=== PATIENT | male | born 1945 | race Caucasian/White ===

== ENCOUNTER 2020-01-24 08:07 | Outpatient (REF) | payer MEDICARE, SELFPAY | END 2020-01-24 08:08 | disposition home or self-care (01) | LOC: HO.BBR 08:07 | PROVIDERS: Visit Provider Internal Medicine Hematology & Oncology | DX: D75.1 Secondary polycythemia (principal) | CPT/HCPCS: 85018; 99195 ==

== ENCOUNTER 2020-01-27 08:51 | Outpatient (REF) | payer MEDICARE, SELFPAY | END 2020-01-27 08:52 | disposition home or self-care (01) | LOC: HO.BBR 08:51 | PROVIDERS: Visit Provider Internal Medicine Hematology & Oncology | DX: D75.1 Secondary polycythemia (principal) | CPT/HCPCS: 85018; 99195 ==

== ENCOUNTER 2020-02-03 08:04 | Outpatient (REF) | payer MEDICARE, SELFPAY | END 2020-02-03 08:05 | disposition home or self-care (01) | LOC: HO.BBR 08:04 | PROVIDERS: Visit Provider Internal Medicine Hematology & Oncology | DX: D75.1 Secondary polycythemia (principal) | CPT/HCPCS: 36415; 85018; 99195 ==

== ENCOUNTER 2020-02-07 08:08 | Outpatient (REF) | payer MEDICARE, SELFPAY | END 2020-02-07 08:09 | disposition home or self-care (01) | LOC: HO.BBR 08:08 | PROVIDERS: Visit Provider Internal Medicine Hematology & Oncology | DX: D75.1 Secondary polycythemia (principal) | CPT/HCPCS: 85018; 99195 ==

== ENCOUNTER 2020-02-10 08:38 | Outpatient (REF) | payer MEDICARE, SELFPAY | END 2020-02-10 08:39 | disposition home or self-care (01) | LOC: HO.BBR 08:38 | PROVIDERS: PCP Internal Medicine; Visit Provider Internal Medicine Hematology & Oncology | DX: D75.1 Secondary polycythemia (principal) | CPT/HCPCS: 85014; 85018; 99195 ==

== ENCOUNTER 2020-02-14 08:31 | Outpatient (REF) | payer MEDICARE, OTHER, SELFPAY | END 2020-02-14 08:32 | disposition home or self-care (01) | LOC: HO.BBR 08:31 | PROVIDERS: PCP Internal Medicine; Visit Provider Internal Medicine Hematology & Oncology | DX: D75.1 Secondary polycythemia (principal) | CPT/HCPCS: 85018; 99195 ==

== ENCOUNTER 2020-02-18 08:07 | Outpatient (REF) | payer MEDICARE, OTHER, SELFPAY | END 2020-02-18 08:08 | disposition home or self-care (01) | LOC: HO.BBR 08:07 | PROVIDERS: Visit Provider Internal Medicine Hematology & Oncology | DX: D75.1 Secondary polycythemia (principal) | CPT/HCPCS: 36415; 85018; 99195 ==

== ENCOUNTER 2020-02-21 08:27 | Outpatient (REF) | payer MEDICARE, OTHER, SELFPAY | END 2020-02-21 08:28 | disposition home or self-care (01) | LOC: HO.BBR 08:27 | PROVIDERS: Visit Provider Internal Medicine Hematology & Oncology | DX: D75.1 Secondary polycythemia (principal) | CPT/HCPCS: 85018; 99195 ==

== ENCOUNTER 2020-02-25 09:56 | Outpatient (REF) | payer MEDICARE, OTHER, SELFPAY | END 2020-02-25 09:57 | disposition home or self-care (01) | LOC: HO.BBR 09:56 | PROVIDERS: Visit Provider Internal Medicine Hematology & Oncology | DX: D75.1 Secondary polycythemia (principal) | CPT/HCPCS: 36415; 85018; 99195 ==

== ENCOUNTER 2020-02-28 08:08 | Outpatient (REF) | payer MEDICARE, OTHER, SELFPAY | END 2020-02-28 08:09 | disposition home or self-care (01) | LOC: HO.BBR 08:08 | PROVIDERS: Visit Provider Internal Medicine Hematology & Oncology | DX: D75.1 Secondary polycythemia (principal) | CPT/HCPCS: 85018 ==

== ENCOUNTER 2020-03-03 07:57 | Outpatient (REF) | payer MEDICARE, OTHER, SELFPAY | END 2020-03-03 07:58 | disposition home or self-care (01) | LOC: HO.BBR 07:57 | PROVIDERS: PCP Internal Medicine; Visit Provider Internal Medicine Hematology & Oncology | DX: D75.1 Secondary polycythemia (principal) | CPT/HCPCS: 36415; 85018; 99195 ==

== ENCOUNTER 2020-03-06 08:01 | Outpatient (REF) | payer MEDICARE, OTHER, SELFPAY | END 2020-03-06 08:02 | disposition home or self-care (01) | LOC: HO.BBR 08:01 | PROVIDERS: PCP Internal Medicine; Visit Provider Internal Medicine Hematology & Oncology | DX: D75.1 Secondary polycythemia (principal) | CPT/HCPCS: 36415; 85018 ==

== ENCOUNTER 2020-03-10 07:57 | Outpatient (REF) | payer MEDICARE, OTHER, SELFPAY | END 2020-03-10 07:58 | disposition home or self-care (01) | LOC: HO.BBR 07:57 | PROVIDERS: PCP Internal Medicine; Visit Provider Internal Medicine Hematology & Oncology | DX: D75.1 Secondary polycythemia (principal) | CPT/HCPCS: 36415; 85018 ==

== ENCOUNTER 2020-03-17 08:36 | Outpatient (REF) | payer MEDICARE, OTHER, SELFPAY | END 2020-03-17 08:37 | disposition home or self-care (01) | LOC: HO.BBR 08:36 | PROVIDERS: Visit Provider Internal Medicine Hematology & Oncology | DX: D75.1 Secondary polycythemia (principal) | CPT/HCPCS: 85014; 85018; 99195 ==

== ENCOUNTER 2020-03-25 08:29 | Outpatient (REF) | payer MEDICARE, OTHER, SELFPAY | END 2020-03-25 08:30 | disposition home or self-care (01) | LOC: HO.BBR 08:29 | PROVIDERS: Visit Provider Internal Medicine Hematology & Oncology | DX: D75.1 Secondary polycythemia (principal) | CPT/HCPCS: 36415; 85018; 99195 ==

== ENCOUNTER 2020-04-03 08:06 | Outpatient (REF) | payer MEDICARE, OTHER, SELFPAY | END 2020-04-03 08:07 | disposition home or self-care (01) | LOC: HO.BBR 08:06 | PROVIDERS: Visit Provider Internal Medicine Hematology & Oncology | DX: D75.1 Secondary polycythemia (principal) | CPT/HCPCS: 85014; 85018; 99195 ==

== ENCOUNTER 2020-04-16 08:08 | Outpatient (REF) | payer MEDICARE, OTHER, SELFPAY | END 2020-04-16 08:09 | disposition home or self-care (01) | LOC: HO.BBR 08:08 | PROVIDERS: Visit Provider Internal Medicine Hematology & Oncology | DX: D75.1 Secondary polycythemia (principal) | CPT/HCPCS: 85018 ==

== ENCOUNTER 2020-04-30 10:04 | Outpatient (REF) | payer MEDICARE, OTHER, SELFPAY | END 2020-04-30 10:05 | disposition home or self-care (01) | LOC: HO.BBR 10:04 | PROVIDERS: Visit Provider Internal Medicine Hematology & Oncology | DX: D75.1 Secondary polycythemia (principal) | CPT/HCPCS: 36415; 85018; 99195 ==

== ENCOUNTER 2020-05-14 09:16 | Outpatient (REF) | payer MEDICARE, OTHER, SELFPAY | END 2020-05-14 09:17 | disposition home or self-care (01) | LOC: HO.BBR 09:16 | PROVIDERS: Visit Provider Internal Medicine Hematology & Oncology | DX: D75.1 Secondary polycythemia (principal) | CPT/HCPCS: 36415; 85018; 99195 ==

== ENCOUNTER 2020-05-28 08:51 | Outpatient (REF) | payer MEDICARE, OTHER, SELFPAY | END 2020-05-28 08:52 | disposition home or self-care (01) | LOC: HO.BBR 08:51 | PROVIDERS: Visit Provider Internal Medicine Hematology & Oncology | DX: D75.1 Secondary polycythemia (principal) | CPT/HCPCS: 36415; 85018; 99195 ==

== ENCOUNTER 2020-06-18 08:50 | Outpatient (REF) | payer MEDICARE, OTHER, SELFPAY | END 2020-06-18 08:51 | disposition home or self-care (01) | LOC: HO.BBR 08:50 | PROVIDERS: Visit Provider Internal Medicine Hematology & Oncology | DX: D75.1 Secondary polycythemia (principal) | CPT/HCPCS: 36415; 85018; 99195 ==

== ENCOUNTER 2020-07-06 08:59 | Outpatient (REF) | payer MEDICARE, OTHER, SELFPAY | END 2020-07-06 09:00 | disposition home or self-care (01) | LOC: HO.BBR 08:59 | PROVIDERS: Visit Provider Internal Medicine Hematology & Oncology | DX: D75.1 Secondary polycythemia (principal) | CPT/HCPCS: 85018; 99195 ==

== ENCOUNTER 2020-07-20 07:52 | Outpatient (REF) | payer MEDICARE, OTHER, SELFPAY | END 2020-07-20 07:53 | disposition home or self-care (01) | LOC: HO.BBR 07:52 | PROVIDERS: Visit Provider Internal Medicine Hematology & Oncology | DX: D75.1 Secondary polycythemia (principal) | CPT/HCPCS: 85014; 85018; 99195 ==

== ENCOUNTER 2020-08-03 07:51 | Outpatient (REF) | payer MEDICARE, OTHER, SELFPAY | END 2020-08-03 07:52 | disposition home or self-care (01) | LOC: HO.BBR 07:51 | PROVIDERS: Visit Provider Internal Medicine Hematology & Oncology | DX: D75.1 Secondary polycythemia (principal) | CPT/HCPCS: 85014; 85018; 99195 ==

== ENCOUNTER 2020-08-17 07:52 | Outpatient (REF) | payer MEDICARE, OTHER, SELFPAY | END 2020-08-17 07:53 | disposition home or self-care (01) | LOC: HO.BBR 07:52 | PROVIDERS: Visit Provider Internal Medicine Hematology & Oncology | DX: D75.1 Secondary polycythemia (principal) | CPT/HCPCS: 36415; 85014; 85018; 99195 ==

== ENCOUNTER 2020-08-31 07:53 | Outpatient (REF) | payer MEDICARE, OTHER, SELFPAY | END 2020-08-31 07:54 | disposition home or self-care (01) | LOC: HO.BBR 07:53 | PROVIDERS: Visit Provider Internal Medicine Hematology & Oncology | DX: D75.1 Secondary polycythemia (principal) | CPT/HCPCS: 85014; 85018; 99195 ==

== ENCOUNTER 2020-09-16 08:04 | Outpatient (REF) | payer MEDICARE, OTHER, SELFPAY | END 2020-09-16 08:05 | disposition home or self-care (01) | LOC: HO.BBR 08:04 | PROVIDERS: Visit Provider Internal Medicine Hematology & Oncology | DX: D75.1 Secondary polycythemia (principal) | CPT/HCPCS: 85014; 85018; 99195 ==

== ENCOUNTER 2020-10-07 07:55 | Outpatient (REF) | payer MEDICARE, OTHER, SELFPAY | END 2020-10-07 07:56 | disposition home or self-care (01) | LOC: HO.BBR 07:55 | PROVIDERS: Visit Provider Internal Medicine Hematology & Oncology | DX: D75.1 Secondary polycythemia (principal) | CPT/HCPCS: 85014; 85018; 99195 ==

== ENCOUNTER 2020-11-10 08:01 | Outpatient (REF) | payer MEDICARE, OTHER, SELFPAY | END 2020-11-10 08:02 | disposition home or self-care (01) | LOC: HO.BBR 08:01 | PROVIDERS: Visit Provider Internal Medicine Hematology & Oncology | DX: D75.1 Secondary polycythemia (principal) | CPT/HCPCS: 85014; 85018; 99195 ==

== ENCOUNTER 2020-12-16 08:06 | Outpatient (REF) | payer MEDICARE, OTHER, SELFPAY | END 2020-12-16 08:07 | disposition home or self-care (01) | LOC: HO.BBR 08:06 | PROVIDERS: Visit Provider Internal Medicine Hematology & Oncology | DX: D75.1 Secondary polycythemia (principal) | CPT/HCPCS: 85018; 99195 ==

== ENCOUNTER → 2021-01-19 08:48 | Outpatient (BNVA) | payer MEDICARE, OTHER, SELFPAY | PROVIDERS: PCP Internal Medicine; Visit Provider Urology | DX: N40.1 Benign prostatic hyperplasia with lower urinary tract symptoms (principal); R35.1 Nocturia | CPT/HCPCS: Q3014 ==

== ENCOUNTER 2021-07-21 09:49 | Outpatient (REF) | payer MEDICARE, OTHER, SELFPAY | END 2021-07-21 09:50 | disposition home or self-care (01) | LOC: HO.LAB 09:49 | PROVIDERS: PCP Internal Medicine; Visit Provider Urology | DX: N40.1 Benign prostatic hyperplasia with lower urinary tract symptoms (principal); R35.1 Nocturia; N39.0 Urinary tract infection, site not specified | CPT/HCPCS: 51798; 87086; 87088; 87186; 99212 ==

== ENCOUNTER → 2022-01-27 08:18 | Outpatient (BNVA) | payer MEDICARE, OTHER, SELFPAY | PROVIDERS: PCP Internal Medicine; Visit Provider Urology | DX: N40.1 Benign prostatic hyperplasia with lower urinary tract symptoms (principal); R33.9 Retention of urine, unspecified | CPT/HCPCS: 51798; 99212 ==

== ENCOUNTER 2022-06-14 10:09 | Outpatient (REF) | payer MEDICARE, OTHER, SELFPAY | END 2022-06-14 10:10 | disposition home or self-care (01) | LOC: HO.LAB 10:09 | PROVIDERS: PCP Internal Medicine; Visit Provider Nurse Practitioner Family | DX: N39.0 Urinary tract infection, site not specified (principal); R31.9 Hematuria, unspecified; Z79.899 Other long term (current) drug therapy | CPT/HCPCS: 51798; 87086; 99212 ==

== ENCOUNTER → 2022-08-03 08:42 | Outpatient (BNVA) | payer MEDICARE, OTHER, SELFPAY | PROVIDERS: PCP Internal Medicine; Visit Provider Urology | DX: R35.1 Nocturia (principal); R33.9 Retention of urine, unspecified | CPT/HCPCS: 51798; 99212 ==

== ENCOUNTER 2023-02-01 08:16 | Outpatient (AMB) | payer MEDICARE, OTHER, SELFPAY ==
--- NOTE | 2023-02-01 08:19 | MHC.OFFVIS ---
Intake Intake Visit Reasons: 6m/PVR Intake Note: Patient is Present for Follow Up PVR Urology Medication: Doxazosin, Antibiotic Allergies: None Blood Thinners: None [facility] PVR: 138ml Allergies No Known Allergies [No Known Allergies*] Allergy (Verified 02/01/23 08:21) HPI HPI Comments History of Present Illness Details Preston is a pleasant male. He is a patient of Dr. Williamson. He is seen for the following urologic condition - BPH - lower urinary tract symptoms PVR approximately 150 cc Prior Episode of hematuria with difficulty urination - self-limiting Prior Declined evaluation with imaging and cystoscopy Does have longstanding smoking history Current medications include doxazosin 1 mg p.o. daily for blood pressure control UA 2+ protein Is seen by Nephrology Continue 12 month review Lower urinary tract symptoms Prior prostate laser for urinary retention 10/10 PSA - 01/12 0.8, 07/14 0.9 Current symptoms - adequate stream, feels he empties his bladder Therapeutic plan - follow-up 6 months PVR Urinary Tract Infection 07/13 Staphylococcus penicillin resistant [facility] Medical History Diverticulitis Hyperlipidemia HTN (hypertension) Hx of colonic polyps BPH (benign prostatic hyperplasia) UTI (urinary tract infection) Other obstructive and reflux uropathy Benign prostatic hyperplasia with lower urinary tract symptoms Surgical History History of surgery Review of Systems Const Denies chills and Denies fever(s) Card Reports no additional complaints and Denies syncope Resp Denies cough GI Denies abdominal pain and Denies heartburn Reports as per HPI and Denies change in libido Neuro Denies syncope Psych Denies change in libido Endo Denies change in libido Physical Exam Const General: cooperative, healthy appearing, comfortable and no acute distress Orientation/consciousness: patient oriented x3 HEENT Face and sinus: Yes normal facial exam Mouth: moist mucous membranes Neck Neck: Yes normal visual inspection, Yes full ROM and Yes trachea midline Chest Chest palpation & inspection: normal inspection of the chest Resp Effort & Inspection: normal respiratory effort, able to speak in complete sentences and no respiratory distress GI Inspection: Yes normal to inspection Back/Spine/Pelvis Cervical Spine: normal cervical lordosis Thoracic/Lumbar Spine: thoracic and lumbar spine normal to inspection Skin General skin exam: no rashes or lesions noted Neuro General: patient oriented x3, gait normal, tone normal and moves all extremities Extrem General: Yes normal to inspection and Yes capillary refill normal Office Procedures Post Void Residual Post Residual Void Post Void Residual (PVR): 138 [id number] Void Residual by ultrasound Results AMB Urinalysis, Automated UA Leukoctes 0 Laura/uL Last Edit by Niya Elizabeth [facility] on 02/01/23 08:36 UA Nitrite Negative Last Edit by Niya Elizabeth [facility] on 02/01/23 08:36 UA Urobilinogen 0.2 mg/dL Last Edit by Niya Elizabeth [facility] on 02/01/23 08:36 UA Protein 100 mg/dL Last Edit by Niya Elizabeth [facility] on 02/01/23 08:36 UA pH 6.0 Last Edit by Niya Elizabeth [facility] on 02/01/23 08:36 UA Blood 0 Gurwinder/uL Last Edit by Niya Elizabeth [facility] on 02/01/23 08:36 UA Specific [place] 1.015 Last Edit by Niya Elizabeth [facility] on 02/01/23 08:36 UA Ketone Negative Last Edit by Niya Elizabeth [facility] on 02/01/23 08:36 UA Bilirubin 0 mg/dL Last Edit by Niya Elizabeth [facility] on 02/01/23 08:36 UA Glucose 0 mg/dL Last Edit by Niya Elizabeth [facility] on 02/01/23 08:36 Results Reviewed Results Reviewed: Laboratory Last Values Urine pH (Auto) 6.0 02/01/23 08:22 Specific [place] (Auto) 1.015 02/01/23 08:22 Urine Protein (Auto) 100 mg/dL 02/01/23 08:22 Glucose (UA)(Auto) 0 mg/dL 02/01/23 08:22 Urine Ketones (Auto) Negative 02/01/23 08:22 Urine Blood (Auto) 0 Gurwinder/uL 02/01/23 08:22 Urine Nitrite (Auto) Negative 02/01/23 08:22 Urine Bilirubin (Auto) 0 mg/dL 02/01/23 08:22 Urine Urobilinogen (Auto) 0.2 mg/dL 02/01/23 08:22 Leukocyte Esterase (Auto) 0 Laura/uL 02/01/23 08:22 Assessment & Plan Assessment & Plan (1) Nocturia more than twice per night: Code(s): R35.1 - Nocturia (2) Benign prostatic hyperplasia with lower urinary tract symptoms: Code(s): N40.1 - Benign prostatic hyperplasia with lower urinary tract symptoms (3) Urinary retention with incomplete bladder emptying: Code(s): R33.9 - Retention of urine, unspecified Plan Twelve month follow-up PVR Orders: Orders AMB Urinalysis Automated Today Z13.9 - Encounter for screening, unspecified AMB Post Void Residual by ultrasound Today R33.9 - Retention of urine, unspecified Patient Instructions: Imaging studies, laboratory and physical exam results were discussed and reviewed in detail. No major barriers to patient understanding were identified. An opportunity to ask questions regarding the treatment plan was provided. All questions were answered. The patient expressed understanding and agreement with the above treatment plan. The patient is aware they should contact our office by phone for worsening of their current condition or the appearance of new urologic symptoms. Compliance is encouraged with any medications and followup testing that is ordered. It is a privilege to participate in the urologic care of your patient. If you have any questions or concerns regarding treatment for the above conditions, or other urologic issues, please do not hesitate to contact me. The office telephone contact is [phone]. This note is constructed using voice recognition software. While every effort has been made to ensure accuracy dental laboratory technician apprentice errors may have been included. Yours sincerely, Dr Moses Beck MD, [facility] - Urology Providers of Expert, Compassionate Care for the Genitourinary System Coding Level of Care Code Est Pt Level 4 (78034) Diagnoses Nocturia more than twice per night R35.1 Benign prostatic hyperplasia with lower urinary tract symptoms N40.1 Urinary retention with incomplete bladder emptying R33.9 CPT Codes Post Residual Void - PVR CPT Code: 79831-Bylt Void Residual by ultrasound ([id number])
== END 2023-02-01 09:03 | disposition home or self-care (01) ==
LOC: HO.HUSH 08:16
PROVIDERS: PCP Internal Medicine; Visit Provider Urology
DX: N40.1 Benign prostatic hyperplasia with lower urinary tract symptoms (principal); R35.1 Nocturia; R33.9 Retention of urine, unspecified; Z13.9 Encounter for screening, unspecified
CPT/HCPCS: 99213

== ENCOUNTER → 2023-02-01 08:16 | Outpatient (BNVA) | payer MEDICARE, OTHER, SELFPAY | PROVIDERS: PCP Internal Medicine; Visit Provider Urology | DX: N40.1 Benign prostatic hyperplasia with lower urinary tract symptoms (principal); R35.1 Nocturia; R33.9 Retention of urine, unspecified | CPT/HCPCS: 51798; 81003; 99212 ==